=== PATIENT | male | born 1980 | race American Indian/Alaskan Native ===

== ENCOUNTER 2021-12-11 11:55 | Emergency (ER) | payer SELFPAY ==
[2021-12-11 12:49] VITALS: BP 127/76
--- NOTE | 2021-12-11 13:33 | Emergency Department Report ---
ED General Adult HPI - General Chief complaint: Medical Clearance Stated complaint: MED REFILLS Time Seen by Provider: 12/11/21 13:28 Source: patient Mode of arrival: Ambulatory Limitations: No Limitations - History of Present Illness Initial comments: Patient 41-year-old male with history of depression and Bipolar disorder who presents for medication refill. Patient denies fevers chills no chest pain or shortness of breath no dizziness or lightheadedness. No SI or HI. Patient arrived to ED via POV patient alert oriented x3 amatory appears nontoxic and with no acute distress at this time. Patient states he will be out of medications today. And needs medications until Monday. Where he will get refills from psychiatry. Patient has previous prescriptions in his possession at this time. Patient denies other symptoms. - Related Data Previous Rx's Medication Instructions Recorded Last Taken Type Benztropine [Cogentin] 0.5 mg PO BID #14 tab 12/11/21 Unknown Rx QUEtiapine [SEROquel] 25 mg PO BID PRN #6 tablet 12/11/21 Unknown Rx levETIRAcetam [Keppra TAB] 750 mg PO BID #14 tab 12/11/21 Unknown Rx risperiDONE [RisperDAL] 4 mg PO DAILY #7 tab 12/11/21 Unknown Rx Allergies Allergy/AdvReac Type Severity Reaction Status Date / Time No Known Allergies Allergy Verified 12/11/21 12:49 ED Review of Systems ROS: Stated complaint: MED REFILLS Other details as noted in HPI Constitutional: denies: chills, fever Eyes: denies: eye pain, eye discharge, vision change ENT: denies: ear pain, throat pain Respiratory: denies: cough, shortness of breath, wheezing Cardiovascular: denies: chest pain, palpitations Endocrine: no symptoms reported Gastrointestinal: denies: abdominal pain, nausea, diarrhea Genitourinary: denies: urgency, dysuria Musculoskeletal: denies: back pain, joint swelling, arthralgia Skin: denies: rash, lesions Neurological: as per HPI. denies: numbness, paresthesias, confusion, vertigo Psychiatric: denies: anxiety, depression, auditory hallucinations, visual hallucinations, homicidal thoughts, suicidal thoughts Hematological/Lymphatic: denies: easy bleeding, easy bruising ED Past Medical Hx - Past Medical History Hx Psychiatric Treatment: Yes (Depression,Bipolar ) - Medications Home Medications: Home Medications Medication Instructions Recorded Confirmed Last Taken Type Benztropine [Cogentin] 0.5 mg PO BID #14 tab 12/11/21 Unknown Rx QUEtiapine [SEROquel] 25 mg PO BID PRN #6 tablet 12/11/21 Unknown Rx levETIRAcetam [Keppra TAB] 750 mg PO BID #14 tab 12/11/21 Unknown Rx risperiDONE [RisperDAL] 4 mg PO DAILY #7 tab 12/11/21 Unknown Rx ED Physical Exam - General Limitations: No Limitations General appearance: alert, in no apparent distress - Head Head exam: Present: atraumatic, normocephalic - Eye Eye exam: Present: normal appearance, EOMI Pupils: Present: normal accommodation - ENT ENT exam: Present: mucous membranes moist - Neck Neck exam: Present: normal inspection, full ROM. Absent: tenderness - Respiratory Respiratory exam: Present: normal lung sounds bilaterally, chest wall tenderness. Absent: respiratory distress, wheezes - Cardiovascular Cardiovascular Exam: Present: regular rate, normal rhythm, normal heart sounds. Absent: systolic murmur, diastolic murmur, rubs, gallop - GI/Abdominal GI/Abdominal exam: Present: soft, normal bowel sounds. Absent: distended, tenderness - Rectal Rectal exam: Present: deferred - Extremities Exam Extremities exam: Present: normal inspection, normal capillary refill. Absent: full ROM - Back Exam Back exam: Present: normal inspection, full ROM. Absent: CVA tenderness (R), CVA tenderness (L) - Neurological Exam Neurological exam: Present: alert, oriented X3, CN II-XII intact, normal gait - Expanded Neurological Exam Expanded Patient oriented to: Present: person, place, time Speech: Present: fluid speech Best Eye Response (Lowry): (4) open spontaneously Best Motor Response (Lowry): (6) obeys commands Best Verbal Response (Michael): (5) oriented Lowry Total: 15 - Psychiatric Psychiatric exam: Present: normal affect, normal mood. Absent: depressed, agitated, anxious, flat affect, manic, homicidal ideation, suicidal ideation - Skin Skin exam: Present: warm, dry, intact, normal color. Absent: rash ED Course Vital Signs 12/11/21 12:46 Temperature 98 F Pulse Rate 115 H Respiratory 16 Rate Blood Pressure 127/76 [Left] O2 Sat by Pulse 99 Oximetry ED Medical Decision Making - Medical Decision Making Patient with no manic or hyper depressive episode at this time. Patient is alert oriented x3 there is no SI or HI. There is no chest pain shortness of breath no nausea no vomiting no fever no chills. Plan refill medications for 7 days. Allow the patient to follow-up with psychiatrist on Monday as scheduled for refills. Patient verbalized agreement and understanding of discharge plan. Patient advised to return to ED should symptoms develop or worsen. Patient verbalizes agreement and understanding with same. Patient DC'd to self in stable condition at this time. Critical care attestation.: If time is entered above; I have spent that time in minutes in the direct care of this critically ill patient, excluding procedure time. ED Disposition Clinical Impression: Medication refill Disposition: HOME / SELF CARE / HOMELESS Is pt being admited?: No Does the pt Need Aspirin: No Condition: Stable Instructions: Medicine Refill at the Emergency Department Additional Instructions: Follow-up with your psychiatrist in 2 to 3 days. Follow-up with your primary care doctor in 2 to 3 days. Return to emergency department should symptoms worsen. Prescriptions: Benztropine [Cogentin] 0.5 mg PO BID #14 tab levETIRAcetam [Keppra TAB] 750 mg PO BID #14 tab risperiDONE [RisperDAL] 4 mg PO DAILY #7 tab QUEtiapine [SEROquel] 25 mg PO BID PRN #6 tablet PRN Reason: Agitation [facility] GISELL RIVAS MD [Staff Physician] - 3-5 Days Forms: Work/School Release Form(ED) Time of Disposition: 13:43
== END 2021-12-11 14:22 | disposition home or self-care (01) ==
LOC: ED 11:55
DX: F32.A Depression, unspecified (principal); Z76.0 Encounter for issue of repeat prescription
CPT/HCPCS: 99282